=== PATIENT | female | born 1935 | race Caucasian/White ===

== ENCOUNTER 2018-09-11 20:58 | Emergency (ER) | payer MEDICARE, OTHER ==
[2018-09-11] MEDS ORDERED: Morphine 4 MG/ML VIAL ONE (22:14)
[2018-09-11] MEDS ORDERED: Ondansetron PF 4 MG/2 ML Vial ONE (22:14)
--- NOTE | 2018-09-11 22:38 | RAD ---
AP PELVIS: Date: 09/11/18 HISTORY: Fall at home. 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 The pelvic ring is intact without any s igns of fracture. IMPRESSION: No evidence of fracture. POS: [facility]
--- NOTE | 2018-09-11 22:39 | RAD ---
RIGHT ELBOW 4 VIEWS: Date: 09/11/18 HISTORY: Fall at home with elbow pain. FINDINGS: There are no signs of fracture, dislocation, or joint effusion. The bones appear demineralized. IMPRESSION: No evidence of fracture. POS: [facility]
--- NOTE | 2018-09-11 22:39 | RAD ---
RIGHT SHOULDER 3 VIEWS: Date: 09/11/18 HISTORY: Fall at home with shoulder pain. FINDINGS: Mild arthritic changes of the AC and glenohumeral joints. There are no signs of fracture or dislocati on. IMPRESSION: No evidence of fracture. POS: [facility]
--- NOTE | 2018-09-11 22:40 | RAD ---
RIGHT HUMERUS 2 VIEWS: Date: 09/11/18 HISTORY: Fall at home with arm pain. FINDINGS: There are arthritic changes of the elbow. There are no signs of fracture or dislocation. IMPRESSION: No evidence of fracture. POS: [facility]
--- NOTE | 2018-09-11 22:46 | CT ---
CT OF BRAIN PERFORMED WITHOUT CONTRAST ENHANCEMENT: Date: 09/11/18 HISTORY: Fall with head injury. FINDINGS: There is generalized ventricular and sulcal prominence. There are no signs of intracerebral hemorrhag e or extra-axial fluid collections. The mastoid air cells and visualized sinuses are clear. IMPRESSION: No acute intracranial abnormalities. POS: [facility]
== END 2018-09-11 23:13 | disposition home or self-care (01) ==
LOC: ERS 20:58
DX: S09.90XA Unspecified injury of head, initial encounter (principal); S50.01XA Contusion of right elbow, initial encounter; E11.9 Type 2 diabetes mellitus without complications; E78.00 Pure hypercholesterolemia, unspecified; I11.0 Hypertensive heart disease with heart failure; I50.9 Heart failure, unspecified; F41.9 Anxiety disorder, unspecified; W22.8XXA Striking against or struck by other objects, initial encounter
CPT/HCPCS: 70450; 72170; 96374; 96375; J2270; J2405